=== PATIENT | male | born 1975 | race African-American/Black ===

== ENCOUNTER 2017-11-07 00:37 | Emergency (ER) | payer SELFPAY ==
--- NOTE | 2017-11-07 01:24 | RADIOLOGY REPORT (SQ) ---
EXAM DESCRIPTION: XR ANKLE 2 VIEWS CLINICAL HISTORY: 42 years Male, PAIN, PRIOR SURG COMPARISON: None. Findings: Osteotomy plate and screw fixation of the distal right fibula and two screw fixation of the distal tibia.. Bones, joints, and soft tissues of the XR RIGHT ANKLE 3 VIEWS appear otherwise intact. IMPRESSION: No acute findings. ORIF of the right distal tibia and fibula.
[2017-11-07] MEDS ORDERED: HYDROCODONE/ACETAMINOPHEN 5-325 MG (6 TAB/ER DISP) PO PRN (02:04)
--- NOTE | 2017-11-07 02:05 | ER Document Report ---
ED General - General Chief Complaint: Ankle Pain Stated Complaint: RIGHT LEG PAIN Time Seen by Provider: 11/07/17 01:55 Notes: Patient is a 42-year-old male who presents with complaints of right ankle pain. He had surgery actually 3 years ago on his right ankle. He has screws and hardware in his ankle. He says occasionally he will have pain in his right ankle. He said over the last 24 hours pain is been a lot worse and tonight is not been unable to sleep and therefore came to ER. He tried Tylenol and ibuprofen which have not been helping. No redness or swelling to the foot or ankle. No new injuries. No other complaints at this time. TRAVEL OUTSIDE OF THE [place] IN LAST 30 DAYS: No - Related Data Allergies/Adverse Reactions: No Known Allergies Allergy (Verified 05/03/14 19:58) Past Medical History - Social History Smoking Status: Current Every Day Smoker Chew tobacco use (# tins/day): No Frequency of alcohol use: Occasional Drug Abuse: None Family History: Reviewed & Not Pertinent Patient has suicidal ideation: No Patient has homicidal ideation: No - Past Medical History Cardiac Medical History: Denies: Hx Coronary Artery Disease, Hx Heart Attack, Hx Hypertension Pulmonary Medical History: Denies: Hx Asthma, Hx Bronchitis, Hx COPD, Hx Pneumonia Neurological Medical History: Denies: Hx Cerebrovascular Accident Renal/ Medical History: Denies: Hx Peritoneal Dialysis Musculoskeltal Medical History: Denies Hx Arthritis Past Surgical History: Reports: Hx Orthopedic Surgery - rt ankle surg - Immunizations Hx Diphtheria, Pertussis, Tetanus Vaccination: Yes Review of Systems - Review of Systems Notes: My Normal Review Basic REVIEW OF SYSTEMS: SKIN: Denies rash or skin lesions. NEUROLOGICAL: Denies sensory or motor loss. ALL OTHER SYSTEMS REVIEWED AND NEGATIVE. Physical Exam - Vital signs Vitals: Temp Pulse Resp BP Pulse Ox 99.2 F 72 18 128/91 H 98 11/07/17 00:49 11/07/17 00:49 11/07/17 00:49 11/07/17 00:49 11/07/17 00:49 - Notes Notes: General Appearance: Well nourished, alert, cooperative, no acute distress, moderate obvious discomfort. Vitals: reviewed, See vital signs table. Extremities: strength 5/5 in all extremities, good pulses in all extremities, no significant swelling to the ankle. Patient has obvious surgical scar on both medial aspect of left ankle. He does have palpable hardware underneath the skin. Some pain with range of motion of the ankle. Good capillary refill. Good dorsalis pedis and posterior tibial pulses. Good distal sensation of the foot., no edema. Skin: warm, dry, appropriate color, no rash Neuro: speech clear, oriented x 3, normal affect, responds appropriately to questions. Course - Re-evaluation Re-evalutation: 11/07/17 02:14 Patient has acute exacerbation of chronic pain in his ankle related to previous fracture with hardware placement and fixation of the fracture. I did look patient up on the controlled substance database. He has never received a narcotic prescription last 6 months. She appears to be having legitimate pain. His x-ray is negative. I will give him a small bottle of [place] to go home with. Also wrote a prescription for just a few Ultram. Informed him to take ibuprofen first and only use the stronger pain medicine for breakthrough pain. I did talk about potential dependence with these medications he is understanding of this and says he does not typically take these and will only take it when absolutely necessary. Strong encourage him return to ER if he is any redness swelling or fevers. Patient agrees with plan will be discharged home. Dictation of this chart was performed using voice recognition software; therefore, there may be some unintended grammatical errors. - Vital Signs Vital signs: Temp Pulse Resp BP Pulse Ox 99.2 F 72 18 128/91 H 98 11/07/17 00:49 11/07/17 00:49 11/07/17 00:49 11/07/17 00:49 11/07/17 00:49 Discharge - Discharge Clinical Impression: Ankle pain, chronic Qualifiers: Laterality: right Qualified Code(s): M25.571 - Pain in right ankle and joints of right foot Condition: Good Disposition: HOME, SELF-CARE Instructions: Oral Narcotic Medication ([facility]) Additional Instructions: Please only take the [place] or Ultram when your pain is severe and not improving with Tylenol or Ibuprofen. please return to the ER immediately if you have fevers, redness or swelling to the ankle, or if you have further concerns. Please follow up wiht your orthopedic doctor if your pain is becoming more frequent. Prescriptions: Tramadol HCl [Ultram] 50 mg PO Q6 PRN #8 tablet PRN Reason: For Breakthrough Pain Forms: Return to Work
[2017-11-07 02:17] VITALS: BP 133/97
== END 2017-11-07 02:17 | disposition home or self-care (01) ==
LOC: ER 00:37
DX: M25.571 Pain in right ankle and joints of right foot (principal); G89.29 Other chronic pain; Z98.890 Other specified postprocedural states; M79.604 Pain in right leg; F17.200 Nicotine dependence, unspecified, uncomplicated
CPT/HCPCS: 99283

== ENCOUNTER 2018-11-29 06:34 | Emergency (ER) | payer SELFPAY ==
--- NOTE | 2018-11-29 07:16 | ER Document Report ---
ED Medical Screen (RME) - General Chief Complaint: Nausea/Vomiting Stated Complaint: VOMITING Time Seen by Provider: 11/29/18 07:10 Notes: Patient is a 43-year-old male who presents emerged department with a chief complaint of abdominal pain. He states that his symptoms started 2 days ago and he has not been eating well. He had 2 episodes of incontinence of stool in his sleep. He is able to hold his bowels when he is awake. Patient denies any sick contacts. Denies any fever. He states he does have some nausea but no vomiting. Denies any abdominal surgeries. Exam: Hyperactive bowel sounds. Tender mid abdomen just above the umbilicus. I have greeted and performed a rapid initial assessment of this patient. A comprehensive ED assessment and evaluation of the patient, analysis of test results and completion of medical decision making process will be conducted by an additional ED providers. TRAVEL OUTSIDE OF THE [place] IN LAST 30 DAYS: No - Related Data Allergies/Adverse Reactions: No Known Allergies Allergy (Verified 05/03/14 19:58) Past Medical History - Past Medical History Cardiac Medical History: Denies: Hx Coronary Artery Disease, Hx Heart Attack, Hx Hypertension Pulmonary Medical History: Denies: Hx Asthma, Hx Bronchitis, Hx COPD, Hx Pneumonia Neurological Medical History: Denies: Hx Cerebrovascular Accident Renal/ Medical History: Denies: Hx Peritoneal Dialysis Musculoskeltal Medical History: Denies Hx Arthritis Past Surgical History: Reports: Hx Orthopedic Surgery - rt ankle surg - Immunizations Hx Diphtheria, Pertussis, Tetanus Vaccination: Yes Physical Exam - Vital signs Vitals: Temp Pulse Resp BP Pulse Ox 99.5 F 84 22 H 122/89 H 98 11/29/18 06:42 11/29/18 06:42 11/29/18 06:42 11/29/18 06:42 11/29/18 06:42 Course - Vital Signs Vital signs: Temp Pulse Resp BP Pulse Ox 99.5 F 84 22 H 122/89 H 98 11/29/18 06:42 11/29/18 06:42 11/29/18 06:42 11/29/18 06:42 11/29/18 06:42
[2018-11-29] MEDS ORDERED: ONDANSETRON HCL INJ/PF 4 MG/2 ML SDV IV ONE (07:17)
[2018-11-29] MEDS ORDERED: NORMAL SALINE 1000 ML 1,000 ML IV ONE (07:17)
[2018-11-29 08:27] LABS: HEMATOCRIT 45.1 % (37.9-51.0); HEMOGLOBIN 15.6 g/dL (13.5-17.0); MEAN CORPUSCULAR HEMOGLOBIN 32.7 pg (27.0-33.4); MEAN CORPUSCULAR HGB CONC 34.6 g/dL (32.0-36.0); MEAN CORPUSCULAR VOLUME 94 fl (80-97); PLATELET COUNT 115 10^3/uL (150-450); RED BLOOD COUNT 4.77 10^6/uL (4.35-5.55); RED CELL DISTRIBUTION WIDTH 12.4 % (11.5-14.0); WHITE BLOOD COUNT 3.2 10^3/uL (4.0-10.5)
[2018-11-29 08:45] LABS: ALANINE AMINOTRANSFERASE 460 U/L (21-72); ALBUMIN 4.3 g/dL (3.5-5.0); ALKALINE PHOSPHATASE 107 U/L (38-126); ANION GAP 9 (5-19); ASPARTATE AMINO TRANSFERASE 441 U/L (17-59); BILIRUBIN,DIRECT 0.4 mg/dL (0.0-0.4); BILIRUBIN,TOTAL 1.4 mg/dL (0.2-1.3); BLOOD UREA NITROGEN 12 mg/dL (7-20); CALCIUM 9.5 mg/dL (8.4-10.2); CARBON DIOXIDE 29 mmol/L (22-30); CHLORIDE 99 mmol/L (98-107); GLUCOSE 103 mg/dL (75-110); POTASSIUM 4.5 mmol/L (3.6-5.0); SODIUM 137.2 mmol/L (137-145); TOTAL PROTEIN 7.5 g/dL (6.3-8.2)
[2018-11-29 08:46] LABS: ABSOLUTE LYMPHOCYTES# (MANUAL) 1.2 10^3/uL (0.5-4.7); ABSOLUTE MONOCYTES # (MANUAL) 0.5 10^3/uL (0.1-1.4); BASOPHILS % (MANUAL) 2 % (0-2); EOSINOPHILS % (MANUAL) 0 % (0-6); LYMPHOCYTES % (MANUAL) 35 % (13-45); MONOCYTES % (MANUAL) 17 % (3-13); RBC MORPHOLOGY COMMENT NORMO-CYTIC/CHROMIC; SEGMENTED NEUTROPHILS % (MAN) 44 % (42-78); TOTAL CELLS COUNTED 100
[2018-11-29 08:47] LABS: PLATELET COMMENT DECREASED
--- NOTE | 2018-11-29 09:20 | RADIOLOGY REPORT (SQ) ---
EXAM DESCRIPTION: ACUTE ABDOMEN SERIES COMPLETED DATE/TIME: 11/29/2018 9:08 am REASON FOR STUDY: fecal incontinence COMPARISON: None. NUMBER OF VIEWS: Three views. TECHNIQUE: Frontal chest, supine abdomen and upright/decubitus abdomen radiographic images acquired. LIMITATIONS: None. FINDINGS: CHEST: Lungs clear of infiltrates. FREE AIR: None. No abnormal gas collections. BOWEL GAS PATTERN: Nonobstructive pattern. No dilated loops or air fluid levels. CALCIFICATIONS: No suspicious calcifications. HARDWARE: None in the abdomen. SOFT TISSUES: No gross mass or suggestion of organomegaly. BONES: No acute fracture. No worrisome bone lesions. OTHER: No other significant finding. IMPRESSION: No acute abnormality of the lungs. Nonobstructive pattern of bowel gas. No free air in the abdomen. TECHNICAL DOCUMENTATION: JOB ID: [id number] [employer]- All Rights Reserved Reading location - IP/workstation name: [email or web address]
[2018-11-29] MEDS ORDERED: MAGNESIUM CITRATE 296 ML BOTTLE PO ONE (11:19)
[2018-11-29 11:35] VITALS: BP 132/84
--- NOTE | 2018-11-29 17:00 | ER Document Report ---
Entered by RENALDO DEUTSCH SCRIBE 11/29/18 0834 Acting as scribe for:BETTYE RAMIREZ DO ED GI/ - General Chief Complaint: Nausea/Vomiting Stated Complaint: VOMITING Time Seen by Provider: 11/29/18 07:10 Mode of Arrival: Ambulatory Information source: Patient Notes: 43-year-old male that presents to the emergency department today with complaints of "diarrhea in his sleep". Patient states for the last few nights he has been woken up with abdominal cramping and having bowel movements. Patient states he has not had any bowel movements during the day for the last x2 days. Patient states that the last time he had a normal bowel movement was probably Tuesday. Patient states he has some mild nausea but denies any vomiting numbness, or tingling. Patient denies saddle anesthesia. TRAVEL OUTSIDE OF THE [place] IN LAST 30 DAYS: No - Related Data Allergies/Adverse Reactions: No Known Allergies Allergy (Verified 11/29/18 07:52) Past Medical History - General Information source: Patient - Social History Smoking Status: Current Every Day Smoker Cigarette use (# per day): Yes Frequency of alcohol use: Social Drug Abuse: None Lives with: Family Family History: Reviewed & Not Pertinent Patient has suicidal ideation: No Patient has homicidal ideation: No Past Surgical History: Reports: Hx Orthopedic Surgery - rt ankle surg - Immunizations Hx Diphtheria, Pertussis, Tetanus Vaccination: Yes Review of Systems - Review of Systems Constitutional: No symptoms reported EENT: No symptoms reported Cardiovascular: No symptoms reported Respiratory: No symptoms reported Gastrointestinal: See HPI, Abdominal pain - minimal abdominal cramping, Diarrhea, Nausea. denies: Vomiting Genitourinary: No symptoms reported Male Genitourinary: No symptoms reported Musculoskeletal: No symptoms reported Skin: No symptoms reported Hematologic/Lymphatic: No symptoms reported Neurological/Psychological: denies: Numbness, Tingling -: Yes All other systems reviewed and negative Physical Exam - Vital signs Vitals: Temp Pulse Resp BP Pulse Ox 99.5 F 84 22 H 122/89 H 98 11/29/18 06:42 11/29/18 06:42 11/29/18 06:42 11/29/18 06:42 11/29/18 06:42 - Notes Notes: PHYSICAL EXAM GENERAL: Alert, interacts well. No acute distress. HEAD: Normocephalic, atraumatic. EYES: Pupils equal, round, and reactive to light. Extraocular movements intact. ENT: Oral mucosa moist, tongue midline. NECK: Full range of motion. Supple. Trachea midline. LUNGS: Clear to auscultation bilaterally, no wheezes, rales, or rhonchi. No respiratory distress. HEART: Regular rate and rhythm. No murmurs, gallops, or rubs. ABDOMEN: Soft, non-tender. Non-distended. Bowel sounds present in all 4 quadrants. No guarding, rigidity, or rebound. EXTREMITIES: Moves all 4 extremities spontaneously. No edema, radial and dorsalis pedis pulses 2/4 bilaterally. No cyanosis. RECTAL: Normal sphincter tone. Soft brown stool, no impaction. No saddle anesthesia. NEUROLOGICAL: Alert and oriented x3. Normal speech. No saddle anesthesia. PSYCH: Normal affect, normal mood. SKIN: Warm, dry, normal turgor. No rashes or lesions noted. Course - Re-evaluation Re-evalutation: 11/29/18 11:20 CBC shows mild leukocytosis leukopenia at 3.2, platelets low at 115, CMP shows elevated AST and ALT. Patient encouraged not to drink anymore alcohol and follow-up with primary care physician as an outpatient. Acute abdominal series does not show any obstruction or free air, it does show moderate stool burden although no large fecal load exactly in the rectum. Rectal exam did reveal good sphincter tone, patient complained of pain and discomfort during the rectal exam which did not reveal any saddle anesthesia. I have no concern for cauda equina syndrome at this time. Discussed with patient that the most likely cause of fecal incontinence at night only is that he is having difficulty from constipation where it stretching the internal sphincter and at night his exte rnal sphincter relaxes and he has fecal incontinence. Patient is able to feel this as it happens, is not having any back pain, fevers or anything else that would indicate epidural abscess spinal cord injury cauda equina syndrome or anything of the like. Patient is instructed to return should he develop numbness, tingling, weakness or any new or concerning symptoms, otherwise follow-up with primary care physician as an outpatient after trying to fix this by giving him magnesium citrate. The theory is that by cleaning out his stool he will no longer have overflow incontinence and he will no longer have incontinence at night. - Vital Signs Vital signs: Temp Pulse Resp BP Pulse Ox 99.8 F 76 16 132/84 H 100 11/29/18 11:30 11/29/18 11:30 11/29/18 11:30 11/29/18 11:30 11/29/18 11:30 - Laboratory Result Diagrams: 11/29/18 08:15 11/29/18 08:15 Laboratory results interpreted by me: 11/29/18 11/29/18 08:15 08:15 WBC 3.2 L Plt Count 115 L Monocytes % (Manual) 17 H Abs Neuts (Manual) 1.4 L Total Bilirubin 1.4 H AST 441 H ALT 460 H Discharge - Discharge Clinical Impression: Elevated LFTs Fecal incontinence Qualifiers: Fecal incontinence type: unspecified Qualified Code(s): R15.9 - Full incontinence of feces Condition: Stable Disposition: HOME, SELF-CARE Additional Instructions: I saw no signs of spinal cord injury or compromise today. Please try the laxative that we gave you today, magnesium citrate. I suspect your incontinence is what is called overflow incontinence. This comes from when you have a very large amount of stool in your rectum that is difficult the past so only with liquid stool concerning around it. If this is why you are having nighttime incontinence then using this laxative today should stop your incontinence tonight. If you continue to have incontinence at night you will need to follow-up with your primary care physician and possibly a GI doctor. Please return to the emergency department for numbness (particularly between your legs), tingling, weakness or any new or concerning symptoms. I personally performed the services described in the documentation, reviewed and edited the documentation which was dictated to the scribe in my presence, and it accurately records my words and actions.
== END 2018-11-29 11:33 | disposition home or self-care (01) ==
LOC: ER 06:34 → EEVIPCON 06:34 → ER 11:33
DX: R15.9 Full incontinence of feces (principal); R79.89 Other specified abnormal findings of blood chemistry; R11.2 Nausea with vomiting, unspecified; R19.7 Diarrhea, unspecified; R10.9 Unspecified abdominal pain; R11.0 Nausea; F17.210 Nicotine dependence, cigarettes, uncomplicated
CPT/HCPCS: 99284; 96361; 96374; 36415; 85025; 80053; 74022; J3490; J2405; J7030

== ENCOUNTER 2019-02-26 17:26 | Emergency (ER) | payer SELFPAY ==
[2019-02-26 17:45] VITALS: BP 133/90
[2019-02-26] MEDS ORDERED: ACETAMINOPHEN 325 MG TABLET PO ONE ×2 (18:59→19:03)
[2019-02-26] MEDS ORDERED: MORPHINE SULFATE 10 MG/ML INJ IV ONE (20:04)
[2019-02-26] MEDS ORDERED: NORMAL SALINE 1000 ML 1,000 ML IV ONE (20:04)
[2019-02-26] MEDS ORDERED: ONDANSETRON HCL INJ/PF 4 MG/2 ML SDV IV ONE (20:04)
--- NOTE | 2019-02-26 20:42 | ER Document Report ---
ED General - General Chief Complaint: Jaw Pain Stated Complaint: BITE ON LEFT JAW Time Seen by Provider: 02/26/19 18:08 Mode of Arrival: Ambulatory Information source: Patient TRAVEL OUTSIDE OF THE [place] IN LAST 30 DAYS: No - HPI Notes: Patient complains of left jaw and neck pain. He states this started approximately 2 days ago. 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 He states he is afraid something may have bit him. He denies any tooth pain. He states he has had fever and chills. He denies any trouble swallowing or breathing. No vomiting. No diarrhea. He does not appreciate any rashes. He is never had any previous similar problems. He states the pain is moderate. It is constant. It is a throbbing sensation. It does radiate to the left side of his face. It is worse if touched and better if left alone. - Related Data Allergies/Adverse Reactions: No Known Allergies Allergy (Verified 02/26/19 17:39) Past Medical History - General Information source: Patient - Social History Smoking Status: Current Every Day Smoker Frequency of alcohol use: Social Drug Abuse: None Family History: Reviewed & Not Pertinent Patient has suicidal ideation: No Patient has homicidal ideation: No - Past Medical History Cardiac Medical History: Denies: Hx Coronary Artery Disease, Hx Heart Attack, Hx Hypertension Pulmonary Medical History: Denies: Hx Asthma, Hx Bronchitis, Hx COPD, Hx Pneumonia Neurological Medical History: Denies: Hx Cerebrovascular Accident Renal/ Medical History: Denies: Hx Peritoneal Dialysis Musculoskeletal Medical History: Denies Hx Arthritis Past Surgical History: Reports: Hx Orthopedic Surgery - rt ankle surg - Immunizations Hx Diphtheria, Pertussis, Tetanus Vaccination: Yes Review of Systems - Review of Systems Constitutional: Chills, Fever Cardiovascular: denies: Chest pain, Dyspnea Respiratory: denies: Cough, Short of breath Gastrointestinal: denies: Abdominal pain, Diarrhea -: Yes All other systems reviewed and negative Physical Exam - Vital signs Vitals: Temp Pulse Resp BP Pulse Ox 100.7 F H 91 16 133/90 H 97 02/26/19 17:44 02/26/19 17:44 02/26/19 17:44 02/26/19 17:44 02/26/19 17:44 Interpretation: Febrile - General General appearance: Appears well, Alert - HEENT Head: Other - Patient has a tender left submandibular mass. It is firm. It does not appear fluctuant. It is fixed and not significantly mobile. Patient has a deutsch so it is hard to ascertain the skin characteristics. Eyes: Normal Conjunctiva: Normal Cornea: Normal Pupils: PERRL Mouth/Lips: Normal Mucous membranes: Normal, Other - Patient's teeth and gums were inspected and palpated and were unremarkable. Pharynx: Normal - Respiratory Respiratory status: No respiratory distress Chest status: Nontender Breath sounds: Normal Chest palpation: Normal - Cardiovascular Rhythm: Regular Heart sounds: Normal auscultation Murmur: No - Abdominal Inspection: Normal Distension: No distension Bowel sounds: Normal Tenderness: Nontender Organomegaly: No organomegaly - Back Back: Normal, Nontender - Extremities General upper extremity: Normal inspection, Nontender, Normal color, Normal ROM, Normal temperature General lower extremity: Normal inspection, Nontender, Normal color, Normal ROM, Normal temperature, Normal weight bearing. No: Carla's sign - Neurological Neuro grossly intact: Yes Cognition: Normal Orientation: AAOx4 Atlas Coma Scale Eye Opening: Spontaneous Nydia Coma Scale Verbal: Oriented Nydia Coma Scale Motor: Obeys Commands Atlas Coma Scale Total: 15 Speech: Normal Motor strength normal: LUE, RUE, LLE, RLE Sensory: Normal - Psychological Associated symptoms: Normal affect, Normal mood - Skin Skin Temperature: Warm Skin Moisture: Dry Skin Color: Normal Course - Re-evaluation Re-evalutation: 02/26/19 20:33 Patient has an obviously tender swollen submandibular mass. This is possibly an abscess versus an infected submandibular salivary gland. Unlikely that this is a cancerous mass but possible. Since it was unclear exactly what the mass was I ordered a CT scan. I also ordered the patient pain medication and nausea medication. I also was going to check a CBC and chemistry panel. Patient became upset with the weight to have the CT scan and the meds given. He walked out and told the nurse that he was not going to wait anymore. I was not notified until the patient was gone from the emergency department. The nurse states that patient would not wait or sign any paperwork. I think this most likely was an infected submandibular gland. I immediately called the patient on his phone. I was able to reach the patient and talk with him. He states that he is not going to return. He states that he is in too much pain and aggravated and that he will come back tomorrow. I did urge him that he needed to return to a medical provider as soon as possible and that he is welcome to return here at any time. I told him that we are not sure what exactly was going on and that we needed further testing. He stated that he understood but he did not want to return today. I do feel that patient is of sound mind and capable of making his own decisions. I did ask patient if I could call him in a prescription for antibiotics as I feel this is most likely an infectious process. He states that I could and that he wanted it called into the [facility] on [address]. I did call in this prescription. 02/26/19 20:42 - Vital Signs Vital signs: Temp Pulse Resp BP Pulse Ox 100.7 F H 91 16 133/90 H 97 02/26/19 17:44 02/26/19 17:44 02/26/19 17:44 02/26/19 17:44 02/26/19 17:44 Discharge - Discharge Clinical Impression: Eloped from emergency department, Facial mass Fever Qualifiers: Fever type: unspecified Qualified Code(s): R50.9 - Fever, unspecified Disposition: ELOPED
== END 2019-02-26 20:29 | disposition left against medical advice (07) ==
LOC: ER 17:26
DX: R22.0 Localized swelling, mass and lump, head (principal); R50.9 Fever, unspecified; R68.84 Jaw pain; F17.200 Nicotine dependence, unspecified, uncomplicated
CPT/HCPCS: 99283

== ENCOUNTER 2019-03-03 10:10 | Observation (INO) | payer SELFPAY ==
[~2019-03-03 10:10] MED LIST: GLYCOPYRROLATE 1 MG/5 ML VIAL ONE; KETOROLAC TROMETHAMINE 60 MG/2 ML SDV ONE; LIDOCAINE 2% INJ-PF (20 MG/ML) 2 ML AMPUL ONE; NEOSTIGMINE METHYLSULFATE 10 MG/10 ML VIAL ONE; ONDANSETRON HCL INJ/PF 4 MG/2 ML SDV ONE; ROCURONIUM BROMIDE INJ 50 MG/5 ML VIAL IV ONE; SUCCINYLCHOLINE CHLORIDE INJ 200 MG/10 ML VIAL ONE
[2019-03-03] MEDS ORDERED: MORPHINE SULFATE 10 MG/ML INJ IV ONE ×2 (11:15→14:06)
[2019-03-03] MEDS ORDERED: CLINDAMYCIN 600 MG/D5W RTU 600 MG/50 ML RTUPB IV ONE (11:16)
[2019-03-03 12:12] LABS: ABSOLUTE BASOPHILS # (AUTO) 0.1 10^3/uL (0.0-0.2); ABSOLUTE LYMPHOCYTES (AUTO) 2.3 10^3/uL (0.5-4.7); ABSOLUTE MONOCYTES (AUTO) 1.1 10^3/uL (0.1-1.4); ABSOLUTE NEUT (AUTO) 7.5 10^3/uL (1.7-8.2); BASOPHILS % (AUTO) 0.8 % (0-2); EOSINOPHILS % (AUTO) 0.3 % (0-6); HEMATOCRIT 38.9 % (37.9-51.0); HEMOGLOBIN 13.4 g/dL (13.5-17.0); LYMPHOCYTES % (AUTO) 20.9 % (13-45); MEAN CORPUSCULAR HGB CONC 34.4 g/dL (32.0-36.0); MEAN CORPUSCULAR VOLUME 96 fl (80-97); MONOCYTES % (AUTO) 10.2 % (3-13); PLATELET COUNT 311 10^3/uL (150-450); RED BLOOD COUNT 4.04 10^6/uL (4.35-5.55); RED CELL DISTRIBUTION WIDTH 12.9 % (11.5-14.0); SEGMENTED NEUTROPHILS % (AUTO) 67.8 % (42-78); TOTAL CELLS COUNTED % (AUTO) 100 %; WHITE BLOOD COUNT 11.1 10^3/uL (4.0-10.5)
[2019-03-03 12:30] LABS: ANION GAP 10 (5-19); BLOOD UREA NITROGEN 4 mg/dL (7-20); CALCIUM 9.8 mg/dL (8.4-10.2); CARBON DIOXIDE 29 mmol/L (22-30); CHLORIDE 103 mmol/L (98-107); GLUCOSE 83 mg/dL (75-110); POTASSIUM 3.8 mmol/L (3.6-5.0)
--- NOTE | 2019-03-03 12:43 | RADIOLOGY REPORT (SQ) ---
EXAM DESCRIPTION: CT SOFT TISSUE NECK WITH COMPLETED DATE/TIME: 03/03/2019 12:12 pm REASON FOR STUDY: facial abscess/dental abcess ? ludwigs angina COMPARISON: None. TECHNIQUE: Post IV contrasted scanning from skull base through lung apices with review of bone, soft tissue and lung windows. Reconstructed coronal and sagittal MPR images reviewed. All images stored on PACS. All CT scanners at this facility use dose modulation, iterative reconstruction, and/or weight based d osing when appropriate to reduce radiation dose to as low as reasonably achievable (ALARA). [facility]: Dose Right [facility]: CareDose [facility]: Dose Right [facility]: Teradose 4D [facility]: Predictry CONTRAST TYPE AND DOSE: contrast/concentration: Isovue 350.00 mg/ml; Total Contrast Delivered: 75.0 ml; Total Saline Delivered: 51.8 ml RENAL FUNCTION: None required. The patient is less than 50 years old. RADIATION DOSE: CT Rad equipment meets quality standard of care and radiation dose reduction techniq ues were employed. CTDIvol: 12.0 mGy. DLP: 370 mGy-cm. . LIMITATIONS: None. FINDINGS: Along the left submandibular triangle just ventral to the submandibular gland, a periphera l rim enhancing abscess is present measuring 2.5 cm AP x 2 cm transverse by 2 cm craniocaudad. This could represent an infected lymph node. Adjacent non suppurtive 2.3 x 1 cm submandibular space lymph node There is overlying skin thickening and stranding in the subcutaneous fat. No left lower dental sherley s or periapical tooth root abscess. SKULL BASE: Inferior brain parenchyma in the field of view unremarkable. MAJOR SALIVARY GLANDS: Left submandibular triangle suppurtive lymph node/abscess as above. Right sub mandibular triangle, sublingual glands, parotid glands are unremarkable. LYMPHADENOPATHY: Left submandibular triangle adenopathy MUCOSAL MASSES OR ASYMMETRY: No mucosal masses or asymmetry. LARYNX/CORDS: No abnormal findings. VASCULAR STRUCTURES: The major vessels are patent. LUNG APICES: Clear. BONES: Intact. THYROID: Normal size. No masses. PARANASAL SINUSES: Clear. OTHER: No other significant finding. IMPRESSION: Small abscess along the left submandibular triangle region with adjacent 2.3 x 1 cm lymp h node and overlying facial cellulitis. TECHNICAL DOCUMENTATION: JOB ID: [id number] Quality ID # [id number]: Final reports with documentation of one or more dose reduction techniques (e.g., Au tomated exposure control, adjustment of the mA and/or kV according to patient size, use of iterative reconstruction technique) 2010 [employer]- All Rights Reserved Reading location - IP/workstation name: [email or web address]
--- NOTE | 2019-03-03 13:06 | ER Document Report ---
ED General - General Chief Complaint: Mouth Problem Stated Complaint: MOUTH PAIN/SWELLING Time Seen by Provider: 03/03/19 10:40 TRAVEL OUTSIDE OF THE [place] IN LAST 30 DAYS: No - HPI Notes: This is a 43 year old male who presents with left jaw swelling for the past week. Pt describes tooth ache. Patient states that he noticed swelling in the left jaw and thought it would get better. He actually came to the emergency department about 4 days ago but states that the wait was too long so he left and went home. Pain is worse with chewing. He denies any fever or chills. He denies any chest pain. Denies any vomiting or diarrhea. He describes his symptoms as moderate. - Related Data Allergies/Adverse Reactions: No Known Allergies Allergy (Verified 03/03/19 10:35) Past Medical History - Social History Smoking Status: Current Every Day Smoker Frequency of alcohol use: Daily Family History: Reviewed & Not Pertinent Patient has suicidal ideation: No Patient has homicidal ideation: No - Past Medical History Cardiac Medical History: Denies: Hx Coronary Artery Disease, Hx Heart Attack, Hx Hypertension Pulmonary Medical History: Denies: Hx Asthma, Hx Bronchitis, Hx COPD, Hx Pneumonia Neurological Medical History: Denies: Hx Cerebrovascular Accident Renal/ Medical History: Denies: Hx Peritoneal Dialysis Musculoskeletal Medical History: Denies Hx Arthritis Past Surgical History: Reports: Hx Orthopedic Surgery - rt ankle surg - Immunizations Hx Diphtheria, Pertussis, Tetanus Vaccination: Yes Review of Systems - Review of Systems Constitutional: denies: Fever, Malaise EENT: Mouth pain, Mouth swelling, Dental problem Cardiovascular: denies: Chest pain, Dyspnea Gastrointestinal: denies: Abdominal pain, Vomiting -: Yes All other systems reviewed and negative Physical Exam - Vital signs Vitals: Temp Pulse Resp BP Pulse Ox 99.7 F 91 17 137/90 H 97 03/03/19 10:38 03/03/19 10:38 03/03/19 10:38 03/03/19 10:38 03/03/19 10:38 - General General appearance: Appears well, Alert - HEENT Head: Normocephalic, Atraumatic Eyes: Normal Pupils: PERRL Notes: There is swelling and induration of the left mandible. There is no brawny induration underneath the chain. There is poor dentition with some slight abdirashid- general tenderness in the left lower mandible. I did not appreciate any obvious fluctuance. Airway is patent. Voice is normal. - Respiratory Respiratory status: No respiratory distress Chest status: Nontender Breath sounds: Normal Chest palpation: Normal - Cardiovascular Rhythm: Regular Heart sounds: Normal auscultation Murmur: No - Abdominal Inspection: Normal Distension: No distension Bowel sounds: Normal Tenderness: Nontender Organomegaly: No organomegaly - Neurological Neuro grossly intact: Yes Cognition: Normal Orientation: AAOx4 Nydia Coma Scale Eye Opening: Spontaneous [place] Coma Scale Verbal: Oriented [place] Coma Scale Motor: Obeys Commands [place] Coma Scale Total: 15 Speech: Normal Motor strength normal: LUE, RUE, LLE, RLE Sensory: Normal - Skin Skin Temperature: Warm Skin Moisture: Dry Skin Color: Normal Course - Re-evaluation Re-evalutation: 03/03/19 13:17 Differential diagnosis includes submandibular abscess versus periodontal abscess versus early onset of Sinan's angina versus facial abscess. Will get a CT scan. 1315 Patient reevaluated. Patient is doing well. Labs and CT reviewed and discussed. Patient's care discussed with Dr. Thomas, ENT. Patient will be going to the OR. - Vital Signs Vital signs: Temp Pulse Resp BP Pulse Ox 99.5 F 85 16 128/88 H 97 03/03/19 14:36 03/03/19 14:36 03/03/19 14:36 03/03/19 14:36 03/03/19 14:36 - Laboratory Result Diagrams: 03/03/19 11:54 03/03/19 11:54 Laboratory results interpreted by me: 03/03/19 03/03/19 11:54 11:54 WBC 11.1 H RBC 4.04 L Hgb 13.4 L BUN 4 L Discharge - Discharge Clinical Impression: Facial abscess, Abscess of submandibular region Condition: Stable Disposition: ADMITTED INPATIENT
[2019-03-03] MEDS ORDERED: CLINDAMYCIN PHOSPHATE INJ 300 MG/2 ML SDV IV ONE (13:10)
[2019-03-03] MEDS ORDERED: NORMAL SALINE 1000 ML 1,000 ML IV PRN (13:11)
[2019-03-03] MEDS ORDERED: DEXAMETHASONE SOD PHOS INJ 10 MG/1 ML VIAL IV ONE (13:11)
[2019-03-03] MEDS ORDERED: LIDOCAINE 2%/EPINEPHRINE INJ 1.7 ML CARTRIDGE ONE (15:29)
[2019-03-03] MEDS ORDERED: LIDOCAINE 1%/EPINEPHRINE INJ 20 ML VIAL ONE (15:29)
[2019-03-03] MEDS ORDERED: BUPIVACAINE HCL 0.5%/EPI 1:200000 INJ 1.8 ML CARTRIDGE ONE ×2 (15:29→16:00)
[2019-03-03] MEDS ORDERED: POVIDONE-IODINE 5% OPH PREP SOLN 30 ML ONE (15:30)
[2019-03-03] MEDS ORDERED: FENTANYL CITRATE INJ/PF 250 MCG/5 ML AMPULE ONE (15:32)
[2019-03-03] MEDS ORDERED: MIDAZOLAM 2 MG/2 ML INJ ONE (15:32)
[2019-03-03] MEDS ORDERED: PROPOFOL INJ 200 MG/20 ML VIAL IV ONE (15:33)
[2019-03-03] MEDS ORDERED: HYDROMORPHONE HCL INJ/PF 2 MG/ML AMPULE ONE (15:33)
--- NOTE | 2019-03-03 16:21 | PDOC CONSULTATION ---
Consultation Consult Date: 03/03/19 Provider Consulted: LALITHA CONCEPCION Consult reason:: Complicated and worsening Left SMG area abscess process History of Present Illness Admission Date/PCP: 03/03/19 13:51 History of Present Illness: RORO FLORES is a 43 year old Afro-English male patient who returns to the [facility] ER for evaluation of a worsening left neck abscess/infectious process. The patient was previously seen in the [facility] ER on February 26, 2019 for similar symptoms but not nearly as severe and left the ER AMA prior to definitive evaluation to include CT neck imaging or antibiotics. He states the left neck/facial symptoms to include significant swelling and pain have steadily become worse which he can no longer tolerate. 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 He denies history of Lyme disease or other infectious type etiologies. He denies tooth sensitivity or tooth pain or pending dental work. He denies history of previous abscesses or history of MRSA. The patient has experienced decreased p.o. intake secondary to pain decreased oral opening due to pain. He denies difficulty breathing/SOB/RODRIGUEZ. Past Medical History Cardiac Medical History: Reports: None Denies: Coronary Artery Disease, Myocardial Infarction, Hypertension Pulmonary Medical History: Reports: None Denies: Asthma, Bronchitis, Chronic Obstructive Pulmonary Disease (COPD), Pneumonia EENT Medical History: Reports: Other - MELECIO Neurological Medical History: Reports: None Endocrine Medical History: Reports: None Malignancy Medical History: Reports: None GI Medical History: Reports: None Musculoskeltal Medical History: Reports: None Denies: Arthritis Skin Medical History: Reports: None Psychiatric Medical History: Reports: None Traumatic Medical History: Reports: None Hematology: Reports: None Denies: Anemia Infectious Medical History: Reports: None Past Surgical History Past Surgical History: Reports: Orthopedic Surgery - Right ankle surgery approx. 5 yrs ago Social History Information Source: Patient Lives with: Family Smoking Status: Current Every Day Smoker Frequency of Alcohol Use: Occasional Hx Recreational Drug Use: No Hx Prescription Drug Abuse: No Family History Family History: Reviewed & Not Pertinent Parental Family History Reviewed: No Children Family History Reviewed: NA Sibling(s) Family History Reviewed.: NA Medication/Allergy Home Medications: No Home Medications 03/03/19 Allergies/Adverse Reactions: No Known Allergies Allergy (Verified 09/21/19 10:35) Review of Systems All systems: reviewed and no additional remarkable complaints except as stated Constitutional: PRESENT: as per HPI Eyes: PRESENT: as per HPI Ears: PRESENT: as per HPI Nose, Mouth, and Throat: PRESENT: as per HPI Cardiovascular: PRESENT: as per HPI Respiratory: PRESENT: as per HPI Gastrointestinal: PRESENT: as per HPI Genitourinary: PRESENT: as per HPI Musculoskeletal: PRESENT: as per HPI Integumentary: PRESENT: as per HPI Neurological: PRESENT: as per HPI Psychiatric: PRESENT: as per HPI Endocrine: PRESENT: as per HPI Hematologic/Lymphatic: PRESENT: as per HPI Allergic/Immunologic: PRESENT: as per HPI Physical Exam Vital Signs: Temp Pulse Resp BP Pulse Ox 99.5 F 85 16 128/88 H 97 03/03/19 14:36 03/03/19 14:36 03/03/19 14:36 03/03/19 14:36 03/03/19 14:36 Intake & Output 03/02/19 03/03/19 03/04/19 06:59 06:59 06:59 Intake Total 50 Balance 50 Weight 70.9 kg General appearance: PRESENT: cooperative, mild distress, other - The patient is alert and oriented and appears uncomfortable overall refers to left face and neck swelling and pain. Head exam: PRESENT: other - MELECIO Eye exam: PRESENT: conjunctiva pink, EOMI Ear exam: PRESENT: normal external ear exam, TM's normal bilaterally Mouth exam: PRESENT: moist, tongue midline - With macroglossia noted, other - FOM supple, no purulence Teeth exam: PRESENT: other - Dentition is fair with no tooth sensitivity noted Throat exam: PRESENT: other - Exam is difficult due to limited oral opening and macroglossia Neck exam: PRESENT: other - The neck range of motion is decreased due to left neck pain and there is left upper neck fullness the submandibular gland distribution with significant TTP Respiratory exam: PRESENT: symmetrical - chest rise and fall, and no stridor or wheezing noted Cardiovascular exam: PRESENT: RRR, other Extremities exam: PRESENT: full ROM Musculoskeletal exam: PRESENT: full ROM Neurological exam: PRESENT: alert, oriented to time, CN II-XII grossly intact - Facial motor nerve integrity/strength is symmetric Psychiatric exam: PRESENT: flat affect - semi-flat affect Skin exam: PRESENT: other - No obvious erythema or discharge noted Results Laboratory Results: 03/03/19 11:54 03/03/19 11:54 03/03/19 03/03/19 11:54 11:54 WBC 11.1 H RBC 4.04 L Hgb 13.4 L Hct 38.9 MCV 96 MCH 33.0 MCHC 34.4 RDW 12.9 Plt Count 311 Seg Neutrophils % 67.8 Sodium 142.4 Potassium 3.8 Chloride 103 Carbon Dioxide 29 Anion Gap 10 BUN 4 L Creatinine 0.68 Est GFR ( Amer) > 60 Glucose 83 Calcium 9.8 Impressions: Soft Tissue Neck CT 03/03/19 11:15 IMPRESSION: Small abscess along the left submandibular triangle region with adjacent 2.3 x 1 cm lymph node and overlying facial cellulitis. Assessment & Plan - Diagnosis (2) Abscess of submandibular region Plan: Extensive discussion with the patient with CT neck imaging also revealing left submandibular gland area abscess process. Recommendation and plan for definitive management in the operating room setting with exam under anesthesia, incision and drainage of left neck area abscess/abscesses, cultures to be taken, and drains to be placed all of which the patient voiced an understanding of and agreed with. The left neck exam under anesthesia/EUA, abscess/abscesses incision and drainage, cultures, drain placement procedure(s) were discussed in detail with the patient/parent(s)/legal guardian(s). Also discussed in detail were the risks, complications, benefits and alternatives of surgery. The risk and complications of surgery/the procedure(s) include and are not limited to bleeding, scarring, infection, injury to blood vessels and nerves, temporary or permanent loss of function, temporary or permanent disability, facial nerve injury that is temporary or permanent, cosmetic/tissue deformities, and need of additional surgery/procedures/care. He voiced an understanding and agreed to proceed with the described surgical plan. - Time Time Spent: 30 to 50 Minutes Within: within 24 hours - Inpatient Certification Medical Necessity: Need For IV Fluids, Need for Pain Control, Need for IV Antibiotics, Need for Surgery, Other - Need for drain management
[2019-03-03] MEDS ORDERED: AMPICILLIN SOD/SULBACTAM 3 GM VIAL ONE (16:31)
[2019-03-03] MEDS ORDERED: FENTANYL CITRATE INJ/PF 100 MCG/2 ML AMPUL IV PRN ×3 (16:55)
[2019-03-03] MEDS ORDERED: MEPERIDINE HCL/PF INJ 25 MG/1 ML DISP.SYRIN IV PRN (16:55)
[2019-03-03] MEDS ORDERED: PROMETHAZINE HCL INJ 25 MG/1 ML VIAL IV PRN ×3 (16:55→18:03)
[2019-03-03] MEDS ORDERED: DIPHENHYDRAMINE HCL 50 MG/ML VIAL IV PRN (16:55)
[2019-03-03] MEDS ORDERED: OXYCODONE-ACETAMINOPHEN 5-325 MG TABLET PO PRN (16:55)
[2019-03-03] MEDS ORDERED: ONDANSETRON HCL INJ/PF 4 MG/2 ML SDV IV PRN (18:03)
[2019-03-03] MEDS ORDERED: RINGERS SOLUTION,LACTATED 1,000 ML IV PRN (18:03)
--- NOTE | 2019-03-03 18:03 | Operative Report ---
Operative Report-[facility] Operative Report: Date of procedure: March 03, 2019 Preoperative diagnoses: 1. Left upper neck abscess 2. Left facial and neck pain 3. Left neck lymphadenopathy Postoperative diagnoses: 1. Left upper neck abscess 2. Left facial and neck pain 3. Left neck lymphadenopathy Operation performed: 1. Left upper neck abscess incision and drainage with cultures taken and Tobias drain placed (CPT code 99798) 2. Exam under anesthesia of the head and neck (CPT code 54562) Primary Surgeon of Record: Dr. Jose Thomas Assisting surgeon: N/A Anesthetic: General endotracheal tube anesthesia Anesthesia provider: N/A Estimated blood loss: 5 mL Fluids: 500 mL Urine output: N/A Complications: None Drains: One modified Tobias drain Sponge count: Verified Needle Count: Verified Materials forwarded as specimen: 1. Left neck abscess cultures Findings: 1. Left upper neck abscess with approximately 5 mL's of foul-smelling purulence released. 2. Left upper neck and left face with fullness of tissues and induration with focal fluctuance overlying the abscess location. Patient also with a thick full deutsch. Indications: This is a 43-year-old Afro-Faroese male patient who has been seen and evaluated in the [facility] emergency room as an ER consult request for worsening left upper neck abscess process is also noted on CT with contrast neck imaging, see ENT ER consult for additional details. There was an extensive discussion held with the patient with plan made to proceed with exam under anesthesia of the head neck with incision and drainage of the left upper neck abscess/abscesses, with cultures and with drain placement which he voiced an understanding of and desired proceed with. The patient voiced an understanding of the procedure/surgery and all of the risks and complications, and consent was obtained. Procedure: The patient was taken to the main operating room and placed on the operating room table in the supine position. Appropriate monitors were placed. Using mask and IV access, general anesthesia was induced. The patient was next transorally intubated without difficulty. The patient was then positioned for left neck surgery. The patient's left lateral neck with planned incision site marked with a surgical marking pen followed by infiltration with local anesthetic with epinephrine. The patient was then prepped and draped in a sterile fashion for neck surgery. At this point the patient underwent exam under anesthesia of the head and neck with clearer identification of the areas of induration and focal area of fluctuance. Next, an incision was made down through the level of the subcutaneous tissues. Gentle blunt dissection was carried out with left upper neck abscess identified and opened with approximately 5 mL's of foul-smelling purulence released with cultures taken. Next, approximately 400 mL's of irrigation was used to irrigate the abscess site. Reasonable hemostasis was noted. At this point a modified Tobias drain was placed into the abscess site and brought out through the skin level and secured with 5-0 Prolene suture. Next, the skin was cleaned and dried followed by placement of bacitracin ointment and a fluffs pressure dressing. The patient was then returned to the anesthesia staff and was allowed to emerge from general anesthesia. The patient was extubated in the main operating room and was then transported to the post- anesthesia recovery unit in stable condition. There were no complications.
[2019-03-03] MEDS ORDERED: ACETAMINOPHEN 1,000 MG/100 ML RTUPB IV ONE ×2 (18:06→20:00)
[2019-03-03] MEDS ORDERED: AMPICILLIN SOD/SULBACTAM 1.5 GM VIAL IV PRN (21:00)
[2019-03-03] MEDS: HYDROCODONE/ACETAMINOPHEN 5-325 MG TABLET PO PRN (22:56)
[2019-03-03] MEDS: DEXAMETHASONE SOD PHOS INJ 10 MG/1 ML VIAL IV SCH (22:57)
[2019-03-03] MEDS ORDERED: AMPICILLIN SOD/SULBACTAM 1.5 GM VIAL ONE (23:09)
[2019-03-03] MEDS: MORPHINE SULFATE 10 MG/ML INJ IV PRN (23:40)
[2019-03-03] MEDS: AMPICILLIN SODIUM/SULBACTAM NA 1.5 GM in NORMAL SALINE 50 ML IV SCH (23:41)
[2019-03-04] MEDS ORDERED: AMPICILLIN SOD/SULBACTAM 1.5 GM VIAL ONE (04:17)
[2019-03-04] MEDS: AMPICILLIN SODIUM/SULBACTAM NA 1.5 GM in NORMAL SALINE 50 ML IV SCH ×3 (04:29→14:53)
[2019-03-04] MEDS: MORPHINE SULFATE 10 MG/ML INJ IV PRN ×2 (06:33→11:29)
[2019-03-04] MEDS: HYDROCODONE/ACETAMINOPHEN 5-325 MG TABLET PO PRN ×2 (06:34→11:29)
[2019-03-04] MEDS: DEXAMETHASONE SOD PHOS INJ 10 MG/1 ML VIAL IV SCH ×2 (06:35→14:19)
[2019-03-04 15:49] VITALS: BP 132/93
--- NOTE | 2019-04-06 10:32 | PDOC H&P ---
History of Present Illness Admission Date/PCP: 03/03/19 13:51 This is a 43-year-old Afro-Afghan male patient who has been seen and evaluated in the [facility] emergency room as an ER consult request for worsening left upper neck abscess process is also noted on CT with contrast neck imaging, see ENT ER consult for additional details. There was an extensive discussion held with the patient with plan made to proceed with exam under anesthesia of the head neck with incision and drainage of the left upper neck abscess/abscesses, with cultures and with drain placement which he voiced an understanding of and desired proceed with. The patient voiced an understanding of the procedure/surgery and all of the risks and complications, and consent was obtained. History of Present Illness: RORO FLORES is a 43 year old Afro-Af[place] male patient who returns to the [facility] ER for evaluation of a worsening left neck abscess/infectious process. The patient was previously seen in the [facility] ER on February 26, 2019 for similar symptoms but not nearly as severe and left the ER AMA prior to definitive evaluation to include CT neck imaging or antibiotics. He states the left neck/facial symptoms to include significant swelling and pain have steadily become worse which he can no longer tolerate. 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 He denies history of Lyme disease or other infectious type etiologies. He denies tooth sensitivity or tooth pain or pending dental work. He denies history of previous abscesses or history of MRSA. The patient has experienced decreased p.o. intake secondary to pain decreased oral opening due to pain. He denies difficulty breathing/SOB/RODRIGUEZ. Past Medical History Cardiac Medical History: Reports: None Denies: Coronary Artery Disease, Myocardial Infarction, Hypertension Pulmonary Medical History: Reports: None Denies: Asthma, Bronchitis, Chronic Obstructive Pulmonary Disease (COPD), Pneumonia EENT Medical History: Reports: Other - MELECIO Neurological Medical History: Reports: None Endocrine Medical History: Reports: None Malignancy Medical History: Reports: None GI Medical History: Reports: None Musculoskeltal Medical History: Reports: None Denies: Arthritis Skin Medical History: Reports: None Psychiatric Medical History: Reports: None Traumatic Medical History: Reports: None Hematology: Reports: None, Other - MELECIO Denies: Anemia Infectious Medical History: Reports: None Past Surgical History Past Surgical History: Reports: Orthopedic Surgery - Right ankle surgery approx. 5 yrs ago Social History Lives with: Family Smoking Status: Current Every Day Smoker Frequency of Alcohol Use: Occasional Hx Recreational Drug Use: No Drugs: None Hx Prescription Drug Abuse: No - Advance Directive Resuscitation Status: Full Code Family History Family History: Reviewed & Not Pertinent Parental Family History Reviewed: Yes Children Family History Reviewed: NA Sibling(s) Family History Reviewed.: NA Medication/Allergy Home Medications: No Home Medications 03/03/19 Allergies/Adverse Reactions: No Known Allergies Allergy (Verified 03/03/19 10:35) Physical Exam Vital Signs: Temp Pulse Resp BP Pulse Ox 97.7 F 64 16 132/93 H 98 03/04/19 15:44 03/04/19 15:44 03/04/19 15:44 03/04/19 15:44 03/04/19 15:44 General appearance: PRESENT: no acute distress, cooperative, mild distress, other Head exam: PRESENT: other - Left face/upper neck abscess/fullness Eye exam: PRESENT: EOMI Ear exam: PRESENT: normal external ear exam Mouth exam: PRESENT: moist, tongue midline Teeth exam: PRESENT: dental caries Neck exam: PRESENT: other - Left upper neck fullness Respiratory exam: PRESENT: clear to auscultation chloe Cardiovascular exam: PRESENT: RRR Musculoskeletal exam: PRESENT: full ROM Neurological exam: PRESENT: alert, altered, awake, oriented to person, oriented to place, oriented to time, oriented to situation, CN II-XII grossly intact Psychiatric exam: PRESENT: other - appeared uncomfortable Skin exam: PRESENT: warm Results Laboratory Results: 03/03/19 11:54 03/03/19 11:54 Impressions: Soft Tissue Neck CT 03/03/19 11:15 IMPRESSION: Small abscess along the left submandibular triangle region with adj acent 2.3 x 1 cm lymph node and overlying facial cellulitis. Assessment & Plan - Time Time Spent: 30 to 50 Minutes Anticipated discharge: Home Within: within 24 hours - Plan Summary Plan Summary: Surgery with postop obs [id number]
== END 2019-03-04 16:23 | disposition home or self-care (01) ==
LOC: ER 10:10 → INTOOBSV 13:51 → EH 13:51 → 5 18:59
PROVIDERS: ADMIT Otolaryngology; ATTEND Otolaryngology
PROC: 0J950ZX Drainage of Left Neck Subcutaneous Tissue and Fascia, Open Approach, Diagnostic (ICD-10-PCS; principal; 2019-03-03 16:00)
DX: L02.11 Cutaneous abscess of neck (principal); R51 Headache; M54.2 Cervicalgia; R59.1 Generalized enlarged lymph nodes; K12.2 Cellulitis and abscess of mouth; Q38.2 Macroglossia; K02.9 Dental caries, unspecified; I48.91 Unspecified atrial fibrillation; F17.210 Nicotine dependence, cigarettes, uncomplicated
CPT/HCPCS: 21501; 96376; 99284; 96375; 96365; 96366; 36415; 87040; 87070; 87205; 85025; 87075; 87077; 80048; 70491; 00300; J2250; J3490 ×5; J1885; J3010; J0295 ×3; J2270 ×2; J2710; J1170; J0330; J2405; J7030; J2704; J1100 ×2; J0131; 300

== ENCOUNTER 2019-07-19 07:28 | Emergency (ER) | payer SELFPAY ==
[2019-07-19] MEDS ORDERED: ONDANSETRON HCL INJ/PF 4 MG/2 ML SDV IV ONE ×2 (10:42→15:09)
[2019-07-19] MEDS ORDERED: MORPHINE SULFATE 10 MG/ML INJ IV ONE (10:42)
[2019-07-19] MEDS ORDERED: DEXAMETHASONE SOD PHOS INJ 10 MG/1 ML VIAL IV ONE (10:42)
[2019-07-19] MEDS ORDERED: CLINDAMYCIN PHOSPHATE INJ 300 MG/2 ML SDV IV ONE (10:42)
[2019-07-19] MEDS ORDERED: NORMAL SALINE 1000 ML 1,000 ML IV ONE (10:45)
--- NOTE | 2019-07-19 10:49 | ER Document Report ---
ED ENT - General Chief Complaint: Abscess Stated Complaint: SORE THROAT Time Seen by Provider: 07/19/19 10:33 Primary Care Provider: LALITHA CONCEPCION DO [Primary Care Provider] - Follow up as needed Notes: Patient is a 44-year-old -[place] male with a past medical history of a neck abscess that was previously drained by Dr. Concepcion ENT who presents to the emergency department with a chief complaint of the same. The patient reports that the abscess was drained by ENT before . He states after that the area began to redevelop. He states is been gradually developing since . He states today pain has worsened and the swelling has worsened beneath the left jaw and neck area. He denies any difficulty breathing or trouble swallowing. Denies any fever, nausea vomiting diarrhea, chills or night sweats. TRAVEL OUTSIDE OF THE [place] IN LAST 30 DAYS: No - Related Data Allergies/Adverse Reactions: No Known Allergies Allergy (Verified 07/19/19 08:01) Past Medical History - Social History Smoking Status: Current Every Day Smoker Chew tobacco use (# tins/day): No Frequency of alcohol use: Social Drug Abuse: None Family History: Reviewed & Not Pertinent Patient has suicidal ideation: No Patient has homicidal ideation: No - Past Medical History Cardiac Medical History: Denies: Hx Coronary Artery Disease, Hx Heart Attack, Hx Hypertension Pulmonary Medical History: Denies: Hx Asthma, Hx Bronchitis, Hx COPD, Hx Pneumonia Neurological Medical History: Denies: Hx Cerebrovascular Accident Renal/ Medical History: Denies: Hx Peritoneal Dialysis Musculoskeletal Medical History: Denies Hx Arthritis Past Surgical History: Reports: Hx Orthopedic Surgery - Right ankle surgery approx. 5 yrs ago - Immunizations Hx Diphtheria, Pertussis, Tetanus Vaccination: Yes Review of Systems - Review of Systems EENT: Other - Trismus Musculoskeletal: Neck pain Skin: Other - Swollen area -: Yes All other systems reviewed and negative Physical Exam - Vital signs Vitals: Temp Pulse Resp BP Pulse Ox 98.8 F 85 16 132/96 H 96 07/19/19 07:34 07/19/19 07:34 07/19/19 07:34 07/19/19 07:34 07/19/19 07:34 - General General appearance: Appears well, Alert - HEENT Head: Normocephalic, Atraumatic Eyes: Normal Conjunctiva: Normal Extraocular movements intact: Yes Eyelashes: Normal Pupils: PERRL Ears: Normal External canal: Normal Tympanic membrane: Normal Nasal: Normal Mouth/Lips: Normal Mucous membranes: Normal Pharynx: Other - About a 2 finger trismus is appreciated. No sublingual swelling. Patent airway, handling secretions well. Neck: Neck mass - Respiratory Respiratory status: No respiratory distress Chest status: Nontender Breath sounds: Normal Chest palpation: Normal - Cardiovascular Rhythm: Regular Heart sounds: Normal auscultation - Neurological Neuro grossly intact: Yes Cognition: Normal Orientation: AAOx4 [place] Coma Scale Eye Opening: Spontaneous Nydia Coma Scale Verbal: Oriented [place] Coma Scale Motor: Obeys Commands [place] Coma Scale Total: 15 Speech: Normal - Psychological Associated symptoms: Normal affect, Normal mood - Skin Skin Temperature: Warm Skin Moisture: Dry Skin Color: Normal Course - Re-evaluation Re-evalutation: 07/19/19 12:[address] Concepcion, patient's ENT at this time. We discussed the case. He will review the images and call back for further plan. 07/19/19 15:42 [address] spoke with Dr. Concepcion, patient's ENT doctor. He recommended the patient get a loading dose of Unasyn, 3 g here IV. He advised to send him home with a prescription for Augmentin 875 p.o. twice daily. States that he will see the patient in his office tomorrow morning at 8 AM for I&D. I discussed this with the patient and he is agreeable to this plan. He was given more pain and nausea medication here prior to discharge. We will send him home in addition to the augment with a prescription for Glasco and Zofran. He was instructed not to drive or operate any heavy machinery while taking this medication. I did psychosocial rehabilitation counselor him at length regarding the importance of outpatient follow-up and advised that he return here or any ER immediately with any new, persistent or worsening symptoms. He verbalized understood and agreed. - Vital Signs Vital signs: Temp Pulse Resp BP Pulse Ox 98.7 F 80 20 136/93 H 97 07/19/19 12:07 07/19/19 12:07 07/19/19 12:07 07/19/19 12:07 07/19/19 12:07 - Laboratory Result Diagrams: 07/19/19 11:05 07/19/19 11:05 Laboratory results interpreted by me: 02/06/20 02/06/20 11:05 11:05 RBC 4.33 L MCV 101 H MCH 35.4 H RDW 14.4 H BUN 6 L Alkaline Phosphatase 131 H Discharge - Discharge Clinical Impression: Neck abscess Condition: Stable Disposition: HOME, SELF-CARE Instructions: Abscess ([facility]) Additional Instructions: Please report to your ear nose and throat doctor's office in the morning no later than 8 AM. Please return here or any ER immediately with any new, persistent or worsening symptoms. Prescriptions: Amoxicillin/Potassium Clav [Augmentin 875-125 Tablet] 1 tab PO BID #20 tab Hydrocodone/Acetaminophen [Glasco 5-325 mg Tablet] 1 tab PO Q6 PRN #12 tablet PRN Reason: Ondansetron [Zofran Odt 4 mg Tablet] 4 mg PO Q8 PRN #20 tab.rapdis PRN Reason: Forms: Return to Work Referrals: LALITHA CONCEPCION DO [Primary Care Provider] - Follow up as needed
[2019-07-19 11:20] LABS: ABSOLUTE BASOPHILS # (AUTO) 0.1 10^3/uL (0.0-0.2); ABSOLUTE EOSINOPHILS # (AUTO) 0.2 10^3/uL (0.0-0.6); ABSOLUTE MONOCYTES (AUTO) 0.5 10^3/uL (0.1-1.4); EOSINOPHILS % (AUTO) 3.4 % (0-6); HEMATOCRIT 43.7 % (37.9-51.0); HEMOGLOBIN 15.3 g/dL (13.5-17.0); LYMPHOCYTES % (AUTO) 29.2 % (13-45); MEAN CORPUSCULAR HEMOGLOBIN 35.4 pg (27.0-33.4); MEAN CORPUSCULAR HGB CONC 35.1 g/dL (32.0-36.0); MEAN CORPUSCULAR VOLUME 101 fl (80-97); MONOCYTES % (AUTO) 7.2 % (3-13); PLATELET COUNT 224 10^3/uL (150-450); RED BLOOD COUNT 4.33 10^6/uL (4.35-5.55); RED CELL DISTRIBUTION WIDTH 14.4 % (11.5-14.0); SEGMENTED NEUTROPHILS % (AUTO) 59.2 % (42-78); TOTAL CELLS COUNTED % (AUTO) 100 %; WHITE BLOOD COUNT 6.8 10^3/uL (4.0-10.5)
[2019-07-19 11:49] LABS: ALBUMIN 4.3 g/dL (3.5-5.0); ALKALINE PHOSPHATASE 131 U/L (38-126); ANION GAP 9 (5-19); ASPARTATE AMINO TRANSFERASE 37 U/L (17-59); BILIRUBIN,TOTAL 0.7 mg/dL (0.2-1.3); BLOOD UREA NITROGEN 6 mg/dL (7-20); CALCIUM 9.3 mg/dL (8.4-10.2); CARBON DIOXIDE 27 mmol/L (22-30); CHLORIDE 106 mmol/L (98-107); CREATINE KINASE 85 U/L (55-170); GLUCOSE 80 mg/dL (75-110); POTASSIUM 4.2 mmol/L (3.6-5.0); TOTAL PROTEIN 7.3 g/dL (6.3-8.2)
[2019-07-19 11:50] LABS: C-REACTIVE PROTEIN < 5.0 mg/L (<10.0)
--- NOTE | 2019-07-19 12:16 | RADIOLOGY REPORT (SQ) ---
EXAM DESCRIPTION: CT SOFT TISSUE NECK WITH COMPLETED DATE/TIME: 07/19/2019 10:35 am REASON FOR STUDY: neck swelling. COMPARISON: CT soft tissue neck, 03/03/2019. TECHNIQUE: Post IV contrasted scanning from skull base through lung apices with review of bone, soft tissue and lung windows. Reconstructed coronal and sagittal MPR images reviewed. All images stored on PACS. All CT scanners at this facility use dose modulation, iterative reconstruction, and/or weight based d osing when appropriate to reduce radiation dose to as low as reasonably achievable (ALARA). [facility]: Dose Right [facility]: CareDose [facility]: Dose Right [facility]: Teradose 4D [facility]: [employer] CONTRAST TYPE AND DOSE: contrast/concentration: Isovue 350.00 mg/ml; Total Contrast Delivered: 75.0 ml; Total Saline Delivered: 55.0 ml RENAL FUNCTION: GFR > 60. RADIATION DOSE: CT Rad equipment meets quality standard of care and radiation dose reduction techniq ues were employed. CTDIvol: 11.3 mGy. DLP: 362 mGy-cm. . LIMITATIONS: None. FINDINGS: SKULL BASE: Intact. MAJOR SALIVARY GLANDS: No solid or cystic masses. No inflammatory changes. LYMPHADENOPATHY: Small submental lymph nodes. Small left cervical lymph nodes. MUCOSAL MASSES OR ASYMMETRY: There is mild asymmetric enhancement of the right tonsillar pillar measu ring 1.2 x 1 cm, nonspecific however cannot rule out an underlying tonsillar mass. Tongue base is sy mmetric. Epiglottis and oropharynx have a normal appearance. LARYNX/CORDS: No abnormal findings. VASCULAR STRUCTURES: The major vessels are patent. LUNG APICES: Mild pulmonary emphysema. No focal consolidation. BONES: Intact. THYROID: Normal size. No masses. PARANASAL SINUSES: There is new mucosal thickening in the inferior maxillary sinuses bilaterally. OTHER: 2 small abscesses in the left submandibular skin the largest inferiorly measures 2.5 x 2.3 cm. This has central low density fluid and surrounding enhancement. There is surrounding edema. A sma ller abscess measuring 1.5 x 0.7 cm is seen along the lateral inferior left mandible. Associated ski n thickening and edema. IMPRESSION: 1. 2 left submandibular subcutaneous abscesses, the largest inferiorly would be amenable to percutane ous drainage. Associated skin thickening and edema. 2. Asymmetric enhancement of the right tonsillar pillar. This is nonspecific, however cannot exclude an underlying tonsillar mass. Clinical correlation and correlation with direct visualization is rec ommended. TECHNICAL DOCUMENTATION: JOB ID: [id number] Quality ID # [id number]: Final reports with documentation of one or more dose reduction techniques (e.g., Au tomated exposure control, adjustment of the mA and/or kV according to patient size, use of iterative reconstruction technique) 2010 [employer]- All Rights Reserved Reading location - IP/workstation name: [email or web address]
[2019-07-19] MEDS ORDERED: AMPICILLIN SOD/SULBACTAM 3 GM VIAL IV ONE (15:04)
[2019-07-19] MEDS ORDERED: FENTANYL CITRATE INJ/PF 100 MCG/2 ML AMPUL IV ONE (15:09)
[2019-07-19 16:20] VITALS: BP 129/85
== END 2019-07-19 16:42 | disposition home or self-care (01) ==
LOC: ER 07:28
DX: L02.11 Cutaneous abscess of neck (principal); F17.200 Nicotine dependence, unspecified, uncomplicated
CPT/HCPCS: 36415; 87040; 82550; 83605; 85025; 86140; 80053; 70491; J3490; J3010; J0295; J2270; J2405; J7030; J1100

== ENCOUNTER → 2019-07-21 | Outpatient (CLI) | payer OTHER ==
[2019-07-23 12:50] LABS: TOXOPLASMA GONDII IGG AB 22.4 IU/mL (0.0-7.1); TOXOPLASMA GONDII IGM AB <3.0 AU/mL (0.0-7.9)
[2019-07-23 13:36] LABS: BARTONELLA HENSELAE IGG Negative titer (Neg:<1:320); BARTONELLA HENSELAE IGM Negative titer (Neg:<1:100); BARTONELLA QUINTANA IGG Negative titer (Neg:<1:320)
[2019-07-23 14:06] LABS: BARTONELLA QUINTANA IGM Negative titer (Neg:<1:100)
[2019-07-24 22:36] LABS: LYME IGG P18 AB Present (.); LYME IGG P23 AB Absent (.); LYME IGG P28 AB Absent (.); LYME IGG P30 AB Absent (.); LYME IGG P39 AB Absent (.); LYME IGG P41 AB Absent (.); LYME IGG P45 AB Absent (.); LYME IGG P58 AB Absent (.); LYME IGG P66 AB Absent (.); LYME IGG P93 AB Present (.); LYME IGM P23 AB Absent (.); LYME IGM P39 AB Absent (.); LYME IGM P41 AB Absent (.)
[2019-07-25 07:49] LABS: LYME DISEASE IGM AB 0.93 index (0.00-0.79)
[2019-07-25 07:50] LABS: LYME IGM WB INTERP Negative (.)
== END ==
LOC: OD 10:56
PROVIDERS: ATTEND Otolaryngology
DX: L02.11 Cutaneous abscess of neck (principal)
CPT/HCPCS: 36415; 86317; 86617; 86618; 86777; 86778

== ENCOUNTER 2019-10-17 16:30 | Emergency (ER) | payer SELFPAY ==
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
--- NOTE | 2019-10-17 18:23 | RADIOLOGY REPORT (SQ) ---
EXAM DESCRIPTION: CTA CHEST IMAGES COMPLETED DATE/TIME: 10/17/2019 6:08 pm REASON FOR STUDY: sob tachycardia syncopy s/p r femur surgery COMPARISON: None. TECHNIQUE: CT scan of the chest performed using helical scanning technique with dynamic intravenous contrast injection. Images reviewed with lung, soft tissue and bone windows. Reconstructed coronal and sagittal MPR images reviewed. Additional 3 dimensional post-processing performed to develop Maximal Intensity Projection images (MS P). All images stored on PACS. All CT scanners at this facility use dose modulation, iterative reconstruction, and/or weight based d osing when appropriate to reduce radiation dose to as low as reasonably achievable (ALARA). [facility]: Dose Right [facility]: CareDose [facility]: Dose Right [facility]: Teradose 4D [facility]: [employer] CONTRAST TYPE AND DOSE: contrast/concentration: Isovue 350.00 mg/ml; Total Contrast Delivered: 52.0 ml; Total Saline Delivered: 36.8 ml Contrast bolus optimized for the pulmonary arteries. Not diagnostic for the aorta. RENAL FUNCTION: GFR > 60. RADIATION DOSE: CT Rad equipment meets quality standard of care and radiation dose reduction techniq ues were employed. CTDIvol: 6.6 - 14.5 mGy. DLP: 526 mGy-cm. . LIMITATIONS: None. FINDINGS: LUNGS AND PLEURA: No masses, infiltrates, or pneumothorax. No pleural effusions or pleura l calcifications. AORTA AND GREAT VESSELS: No aneurysm. Contrast bolus not optimized for the aorta. HEART: No pericardial effusion. No significant coronary artery calcifications. PULMONARY ARTERIES: No emboli visualized in the main pulmonary arteries or the segmental branches. HILAR AND MEDIASTINAL STRUCTURES: No identified masses or abnormal nodes. HARDWARE: None in the chest. UPPER ABDOMEN: No significant findings. Limited exam. THYROID AND OTHER SOFT TISSUES: No masses. No adenopathy. BONES: No acute or significant finding. 3D MIPS: Confirm above findings. OTHER: No other significant finding. IMPRESSION: NORMAL CTA OF THE CHEST. NO PULMONARY EMBOLI. COMMENT: Quality ID # 436: Final reports with documentation of one or more dose reduction techniques (e.g., Automated exposure control, adjustment of the mA and/or kV according to patient size, use of iterative reconstruction technique) TECHNICAL DOCUMENTATION: JOB ID: [id number] 2010 [employer]- All Rights Reserved Reading location - IP/workstation name: [email or web address]
[2019-10-17 18:27] LABS: ABSOLUTE BASOPHILS # (AUTO) 0.1 10^3/uL (0.0-0.2); ABSOLUTE EOSINOPHILS # (AUTO) 0.1 10^3/uL (0.0-0.6); ABSOLUTE MONOCYTES (AUTO) 1.2 10^3/uL (0.1-1.4); ABSOLUTE NEUT (AUTO) 9.3 10^3/uL (1.7-8.2); BASOPHILS % (AUTO) 0.5 % (0-2); EOSINOPHILS % (AUTO) 0.7 % (0-6); HEMOGLOBIN 12.4 g/dL (13.5-17.0); LYMPHOCYTES % (AUTO) 8.5 % (13-45); MEAN CORPUSCULAR HEMOGLOBIN 34.3 pg (27.0-33.4); MEAN CORPUSCULAR HGB CONC 35.4 g/dL (32.0-36.0); MEAN CORPUSCULAR VOLUME 97 fl (80-97); MONOCYTES % (AUTO) 10.5 % (3-13); PLATELET COUNT 340 10^3/uL (150-450); RED BLOOD COUNT 3.61 10^6/uL (4.35-5.55); RED CELL DISTRIBUTION WIDTH 12.5 % (11.5-14.0); SEGMENTED NEUTROPHILS % (AUTO) 79.8 % (42-78); TOTAL CELLS COUNTED % (AUTO) 100 %; WHITE BLOOD COUNT 11.6 10^3/uL (4.0-10.5)
--- NOTE | 2019-10-17 18:46 | RADIOLOGY REPORT (SQ) ---
EXAM DESCRIPTION: FEMUR RIGHT IMAGES COMPLETED DATE/TIME: 10/17/2019 6:20 pm REASON FOR STUDY: s/p ORIF and syncopy COMPARISON: None. NUMBER OF VIEWS: Two views. TECHNIQUE: Two radiographic images acquired of the right femur to include hip and knee in at least o ne projection. LIMITATIONS: None. FINDINGS: MINERALIZATION: Normal. BONES: Acetabular fractures status post plate and screw fixation. Skin ozzie consistent with recen t postoperative state. No acute fracture. No worrisome bone lesions. SOFT TISSUES: No obvious swelling or foreign body. OTHER: No other significant finding. IMPRESSION: No acute findings. TECHNICAL DOCUMENTATION: JOB ID: [id number] 2010 [employer]- All Rights Reserved Reading location - IP/workstation name: [email or web address]
[2019-10-17 18:53] LABS: ALBUMIN 4.1 g/dL (3.5-5.0); ALKALINE PHOSPHATASE 68 U/L (38-126); ANION GAP 13 (5-19); ASPARTATE AMINO TRANSFERASE 60 U/L (17-59); BILIRUBIN,DIRECT 0.1 mg/dL (0.0-0.4); BLOOD UREA NITROGEN 15 mg/dL (7-20); CALCIUM 9.4 mg/dL (8.4-10.2); CARBON DIOXIDE 24 mmol/L (22-30); CHLORIDE 99 mmol/L (98-107); GLUCOSE 99 mg/dL (75-110); POTASSIUM 4.6 mmol/L (3.6-5.0); TOTAL PROTEIN 7.3 g/dL (6.3-8.2)
[2019-10-17 18:57] LABS: ALCOHOL < 10 mg/dL (NONE DETECTED)
[2019-10-17] MEDS ORDERED: FENTANYL CITRATE INJ/PF 100 MCG/2 ML AMPUL IV ONE (19:05)
[2019-10-17 19:47] LABS: APPEARANCE,URINE CLEAR; BILIRUBIN,URINE NEGATIVE (NEGATIVE); COLOR,URINE YELLOW; GLUCOSE, URINE NEGATIVE (NEGATIVE); KETONES,URINE NEGATIVE (NEGATIVE); LEUKOCYTE ESTERASE,URINE NEGATIVE (NEGATIVE); NITRITE,URINE NEGATIVE (NEGATIVE); PROTEIN,URINE NEGATIVE (NEGATIVE); URINE SPECIFIC GRAVITY 1.049; UROBILINOGEN,URINE NEGATIVE mg/dL (<2.0)
--- NOTE | 2019-10-17 19:57 | EKG REPORT ---
SEVERITY:- NORMAL ECG - SINUS RHYTHM : Confirmed by: Brandyn Orellana MD 17-Oct-2019 19:55:57
[2019-10-17 20:00] LABS: URINE AMPHETAMINES SCREEN NEGATIVE; URINE BARBITURATES SCREEN NEGATIVE; URINE BENZODIAZEPINES SCREEN NEGATIVE; URINE COCAINE SCREEN NEGATIVE; URINE METHADONE SCREEN NEGATIVE; URINE PHENCYCLIDINE SCREEN NEGATIVE
[2019-10-17 20:03] LABS: URINE MARIJUANA (THC) SCREEN UNCONFIRMED POSITIVE
[2019-10-17 20:17] VITALS: BP 129/84
== END 2019-10-17 20:15 | disposition home or self-care (01) ==
LOC: ER 16:30
DX: M70.851 Other soft tissue disorders related to use, overuse and pressure, right thigh (principal); R55 Syncope and collapse; R61 Generalized hyperhidrosis; R00.0 Tachycardia, unspecified; F17.210 Nicotine dependence, cigarettes, uncomplicated; Z79.02 Long term (current) use of antithrombotics/antiplatelets
CPT/HCPCS: 93005; 99285; 96374; 36415; 80307 ×2; 85025; 80053; 81001; 84484; 73552; 71275; 93010; J3010